=== PATIENT | male | born 1975 | race Hispanic/Latino ===

== ENCOUNTER 2021-04-28 17:36 | Inpatient (IN) | payer SELFPAY ==
[2021-04-28] MEDS ORDERED: ONDANSETRON 4 MG/2 ML INJ IV ONE (18:09)
[2021-04-28] MEDS ORDERED: SODIUM CHLORIDE 0.9% 1000 ML 1,000 ML IV ONE (18:09)
--- NOTE | 2021-04-28 18:27 | Emergency Department Report ---
ED General Adult HPI - General Chief complaint: Chest Pain Stated complaint: COVID POSITIVE/VOMITING/DIABETIC Time Seen by Provider: 04/28/21 18:04 Source: patient Mode of arrival: Ambulatory Limitations: No Limitations - History of Present Illness Initial comments: Patient is a 46-year-old male presents emergency room complaints of COVID-19 symptoms that began a week ago. He states he tested positive for COVID-19 yesterday. He has associated cough, shortness of breath, fever, chills, body aches, nausea, vomiting, diarrhea. He states he is having difficulty tolerating p.o. intake secondary to the vomiting. He states that occasionally has chest discomfort with coughing but has no chest pain currently. He denies any abdominal pain, leg swelling, hemoptysis, pleuritic pain. Past medical history of diabetes. No allergies to medications. He is a non-smoker. - Related Data Allergies Allergy/AdvReac Type Severity Reaction Status Date / Time No Known Allergies Allergy Unverified 04/28/21 17:41 ED Review of Systems ROS: Stated complaint: COVID POSITIVE/VOMITING/DIABETIC Other details as noted in HPI Comment: All other systems reviewed and negative ED Past Medical Hx - Past Medical History Hx Diabetes: Yes - Surgical History Past Surgical History?: No ED Physical Exam - General Limitations: No Limitations General appearance: alert, in no apparent distress - Head Head exam: Present: atraumatic, normocephalic - Eye Eye exam: Present: normal appearance - ENT ENT exam: Present: mucous membranes moist - Respiratory Respiratory exam: Present: normal lung sounds bilaterally. Absent: respiratory distress, wheezes, rales, rhonchi, stridor, chest wall tenderness, accessory muscle use, decreased breath sounds, prolonged expiratory - Cardiovascular Cardiovascular Exam: Present: regular rate, normal rhythm, normal heart sounds. Absent: systolic murmur, diastolic murmur, rubs, gallop - Neurological Exam Neurological exam: Present: alert, oriented X3 - Psychiatric Psychiatric exam: Present: normal affect, normal mood - Skin Skin exam: Present: warm, dry, intact ED Course Vital Signs 04/28/21 04/28/21 17:43 20:12 Temperature 99.1 F Pulse Rate 94 H Respiratory 20 Rate Blood Pressure 136/77 O2 Sat by Pulse 94 90 Oximetry - Consultations Consultation #1: 04/28/21 21:[address] Biggs, hospitalist will accept and resume care of patient, will admit to hospitalist service ED Medical Decision Making - Lab Data Result diagrams: 04/28/21 18:22 04/28/21 18:22 Lab Results 04/28/21 04/28/21 04/28/21 Range/Units 17:48 18:22 18:22 WBC 5.1 (4.5-11.0) K/mm3 RBC 5.50 H (3.65-5.03) M/mm3 Hgb 15.6 H (11.8-15.2) gm/dl Hct 46.2 H (35.5-45.6) % MCV 84 (84-94) fl MCH 29 (28-32) pg MCHC 34 (32-34) % RDW 13.6 (13.2-15.2) % Plt Count 153 (140-440) K/mm3 Lymph % (Auto) 26.8 (13.4-35.0) % [place] % (Auto) 5.3 (0.0-7.3) % Eos % (Auto) 0.0 (0.0-4.3) % Baso % (Auto) 0.3 (0.0-1.8) % Lymph # (Auto) 1.4 (1.2-5.4) K/mm3 [place] # (Auto) 0.3 (0.0-0.8) K/mm3 Eos # (Auto) 0.0 (0.0-0.4) K/mm3 Baso # (Auto) 0.0 (0.0-0.1) K/mm3 Seg Neutrophils % 67.6 (40.0-70.0) % Seg Neutrophils # 3.4 (1.8-7.7) K/mm3 Sodium 131 L (137-145) mmol/L Potassium 4.2 (3.6-5.0) mmol/L Chloride 94.1 L (98-107) mmol/L Carbon Dioxide 23 (22-30) mmol/L Anion Gap 18 mmol/L BUN 11 (9-20) mg/dL Creatinine 0.7 L (0.8-1.3) mg/dL Estimated GFR > 60 ml/min BUN/Creatinine Ratio 16 % Glucose 187 H (75-100) mg/dL POC Glucose 192 H (70-105) mg/dL Calcium 8.5 (8.4-10.2) mg/dL Total Bilirubin 0.40 (0.1-1.2) mg/dL AST 28 (5-40) units/L ALT 34 (7-56) units/L Alkaline Phosphatase 68 (35-129) units/L Total Protein 7.2 (6.3-8.2) g/dL Albumin 3.9 (3.9-5) g/dL Albumin/Globulin Ratio 1.2 % Lipase 17 (13-60) units/L Vital Signs 04/28/21 04/28/21 17:43 20:12 Temperature 99.1 F Pulse Rate 94 H Respiratory 20 Rate Blood Pressure 136/77 O2 Sat by Pulse 94 90 Oximetry - Radiology Data Radiology results: report reviewed Ordering Physician: SHAQ CASTRO Date of Service: 04/28/21 Procedure(s): XR chest 1V ap Accession Number(s): [id number] cc: SHAQ CASTRO Fluoro Time In Minutes: CHEST 1 VIEW 04/28/2021 6:23 PM INDICATION / CLINICAL INFORMATION: cough, SOB, COVID +. COMPARISON: None available. FINDINGS: SUPPORT DEVICES: None. HEART / MEDIASTINUM: No significant abnormality. LUNGS / PLEURA: Patchy bilateral pulmonary opacities which can be seen in atypical/viral pneumonia. No pneumothorax. ADDITIONAL FINDINGS: No significant additional findings. IMPRESSION: 1. Patchy bilateral pneumonia, possibly Covid pneumonia. Signer Name: Matt Ernst MD Signed: 04/28/2021 7:31 PM Workstation Name: [id number] Transcribed By: DT Dictated By: Robert Ernst MD Electronically Authenticated By: Robert Ernst MD Signed Date/Time: 04/28/211930 DD/ 29 TD/TT: - Medical Decision Making Patient is a 46-year-old male presents emergency room complaints of COVID-19 symptoms that began a week ago. He states he tested positive for COVID-19 yesterday. He has associated cough, shortness of breath, fever, chills, body aches, nausea, vomiting, diarrhea. He states he is having difficulty tolerating p.o. intake secondary to the vomiting. He states that occasionally has chest discomfort with coughing but has no chest pain currently. He denies any abdominal pain, leg swelling, hemoptysis, pleuritic pain. Past medical history of diabetes. No allergies to medications. He is a non-smoker. Initial vitals with mild hypoxia, on ambulation patient's oxygen saturation drops to 90% on room air, patient placed on 2 L nasal cannula. labs with mild dehydration, otherwise stable. CXR: 1. Patchy bilateral pneumonia, possibly Covid pneumonia. Patient given ceftriaxone, azithromycin, dexamethasone. Given COVID-19 with hypoxia pt will be admitted to hospitalist service. Spoke with Dr. Biggs, hospitalist will accept and resume care of patient, will admit to hospitalist service. Spoke with Dr. Garcia, ER attending is agreeable with plan. Discussed all results with patient and answered questions and patient is agreeable with admission. Critical care attestation.: If time is entered above; I have spent that time in minutes in the direct care of this critically ill patient, excluding procedure time. ED Disposition Clinical Impression: COVID-19, Bilateral pulmonary infiltrates on chest x-ray, Hypoxia Disposition: OP ADMIT IP TO THIS HOSP Is pt being admited?: Yes Does the pt Need Aspirin: No Condition: Serious Time of Disposition: 21:16 Print Language: OCCITAN
[2021-04-28 18:38] LABS: Basophils % (Auto) 0.3 % (0.0-1.8); Hematocrit 46.2 % (35.5-45.6); Hemoglobin 15.6 gm/dl (11.8-15.2); Lymphocytes # (Auto) 1.4 K/mm3 (1.2-5.4); Lymphocytes % (Auto) 26.8 % (13.4-35.0); Mean Corpuscular HGB Conc 34 % (32-34); Mean Corpuscular Volume 84 fl (84-94); Monocytes # (Auto) 0.3 K/mm3 (0.0-0.8); Monocytes % (Auto) 5.3 % (0.0-7.3); Platelet Count 153 K/mm3 (140-440); Red Cell Distribution Width 13.6 % (13.2-15.2)
[2021-04-28 19:02] LABS: Alanine Aminotransferase 34 units/L (7-56); Albumin 3.9 g/dL (3.9-5); Blood Urea Nitrogen 11 mg/dL (9-20); Calcium 8.5 mg/dL (8.4-10.2); Hemolysis Index 13
[2021-04-28 19:07] LABS: BUN/Creatinine Ratio 16
--- NOTE | 2021-04-28 19:35 | XRay Report ---
CHEST 1 VIEW 04/28/2021 6:23 PM INDICATION / CLINICAL INFORMATION: cough, SOB, COVID +. COMPARISON: None available. FINDINGS: SUPPORT DEVICES: None. HEART / MEDIASTINUM: No significant abnormality. LUNGS / PLEURA: Patchy bilateral pulmonary opacities which can be seen in atypical/viral pneumonia. N o pneumothorax. ADDITIONAL FINDINGS: No significant additional findings. IMPRESSION: 1. Patchy bilateral pneumonia, possibly Covid pneumonia. Signer Name: Matt Ernst MD Signed: 04/28/2021 7:31 PM Workstation Name: [id number]
[2021-04-28] MEDS ORDERED: cefTRIAXone/NS 1 GM/50 ML 1 GM/50 ML BAG IV ONE (20:21)
[2021-04-28] MEDS ORDERED: AZITHROMYCIN/NS 500 MG/250 ML 500 MG/250 ML BAG IV ONE (20:21)
[2021-04-28] MEDS ORDERED: dexAMETHasone 4 MG/ML VIAL IV ONE (20:21)
[2021-04-28] MEDS ORDERED: oxyCODONE /ACETAMINOPHEN 5-325MG TAB PO PRN (22:29)
[2021-04-28] MEDS ORDERED: HYDROmorphone 1 MG/1 ML INJ IV PRN (22:29)
[2021-04-28] MEDS ORDERED: ACETAMINOPHEN 325 MG TAB PO PRN (22:29)
[2021-04-28] MEDS ORDERED: DEXTROSE 50% IN WATER (25GM) 50 ML SYRINGE IV PRN (22:29)
[2021-04-28] MEDS ORDERED: ALBUTEROL 2.5 MG/3 ML NEBU IH PRN (22:29)
[2021-04-28] MEDS ORDERED: ONDANSETRON 4 MG/2 ML INJ IV PRN (22:29)
[2021-04-28] MEDS ORDERED: hydrALAZINE 20 MG/1 ML INJ IV PRN (22:32)
--- NOTE | 2021-04-28 22:37 | History and Physical Report ---
History of Present Illness Date of examination: 04/28/21 Date of admission: 04/28/21 21:16 Chief complaint: Chest pain Vomiting Covid positive History of present illness: 46 years old male with history of diabetes was brought to the emergency room because of COVID-19 symptoms that began a week ago. He states he tested positive for COVID-19 yesterday. He has associated cough, shortness of breath, fever, chills, body aches, nausea, vomiting, diarrhea. He states he is having difficulty tolerating p.o. intake secondary to the vomiting. He states that occasionally has chest discomfort with coughing but has no chest pain currently. He denies any abdominal pain, leg swelling, hemoptysis, pleuritic pain. He is a non-smoker. In the emergency room patient chest x-ray shows patchy bilateral pneumonia possibly Covid pneumonia Past History Past Medical History: diabetes Medications and Allergies Allergies Allergy/AdvReac Type Severity Reaction Status Date / Time No Known Allergies Allergy Unverified 04/28/21 17:41 Active Meds: Active Medications Acetaminophen (Acetaminophen 325 Mg Tab) 650 mg PO Q4H PRN PRN Reason: Pain MILD(1-3)/Fever >100.5/MARIN Albuterol (Albuterol 2.5 Mg/3 Ml Nebu) 2.5 mg IH Q4HRT PRN PRN Reason: Shortness Of Breath Albuterol/Ipratropium (Ipratropium/Albuterol Sulfate 3 Ml Ampul.Neb) 1 ampul IH Q6HRT [facility] Dextrose (Dextrose 50% In Water (25gm) 50 Ml Syringe) 50 ml IV Q30MIN PRN; Protocol PRN Reason: Hypoglycemia Famotidine (Famotidine 20 Mg Tab) 20 mg PO BID [facility] Hydromorphone HCl (Hydromorphone 1 Mg/1 Ml Inj) 0.5 mg IV Q3H PRN PRN Reason: Pain , Severe (7-10) Ceftriaxone Sodium (Rocephin/Ns 2 Gm/100 Ml) 2 gm in 100 mls @ 200 mls/hr IV Q24H RENETTA; Protocol Ondansetron HCl (Ondansetron 4 Mg/2 Ml Inj) 4 mg IV Q8H PRN PRN Reason: Nausea And Vomiting Oxycodone/Acetaminophen (Oxycodone /Acetaminophen 5-325mg Tab) 1 tab PO Q6H PRN PRN Reason: Pain, Moderate (4-6) Sodium Chloride (Sodium Chloride 0.9% 10 Ml Flush Syringe) 10 ml IV BID [facility] Sodium Chloride (Sodium Chloride 0.9% 10 Ml Flush Syringe) 10 ml IV PRN PRN PRN Reason: LINE FLUSH Review of Systems Constitutional: fever, chills, other (Body ache) Gastrointestinal: nausea, vomiting, diarrhea Exam - Constitutional Vitals: Temp Pulse Resp BP Pulse Ox 99.1 F 94 H 20 136/77 90 04/28/21 17:43 04/28/21 17:43 04/28/21 17:43 04/28/21 17:43 04/28/21 20:12 General appearance: Present: no acute distress, well-nourished - EENT Eyes: Present: PERRL ENT: hearing intact, clear oral mucosa - Neck Neck: Present: supple, normal ROM - Respiratory Respiratory effort: normal Respiratory: bilateral: CTA - Cardiovascular Heart Sounds: Present: S1 & S2. Absent: rub, click - Extremities Extremities: pulses symmetrical, No edema Peripheral Pulses: within normal limits - Abdominal General gastrointestinal: Present: soft, non-tender, non-distended, normal bowel sounds Male genitourinary: Present: normal - Integumentary Integumentary: Present: clear, warm, dry - Musculoskeletal Musculoskeletal: gait normal, strength equal bilaterally - Psychiatric Psychiatric: appropriate mood/affect, intact judgment & insight - Neurologic Neurologic: CNII-XII intact, moves all extremities Results - Labs CBC & Chem 7: 04/28/21 18:22 04/28/21 18:22 Labs: Laboratory Last Values WBC 5.1 K/mm3 (4.5-11.0) 04/28/21 18:22 RBC 5.50 M/mm3 (3.65-5.03) H 04/28/21 18:22 Hgb 15.6 gm/dl (11.8-15.2) H 04/28/21 18:22 Hct 46.2 % (35.5-45.6) H 04/28/21 18:22 MCV 84 fl (84-94) 04/28/21 18:22 MCH 29 pg (28-32) 04/28/21 18:22 MCHC 34 % (32-34) 04/28/21 18:22 RDW 13.6 % (13.2-15.2) 04/28/21 18:22 Plt Count 153 K/mm3 (140-440) 04/28/21 18:22 Lymph % (Auto) 26.8 % (13.4-35.0) 04/28/21 18:22 [place] % (Auto) 5.3 % (0.0-7.3) 04/28/21 18:22 Eos % (Auto) 0.0 % (0.0-4.3) 04/28/21 18:22 Baso % (Auto) 0.3 % (0.0-1.8) 04/28/21 18:22 Lymph # (Auto) 1.4 K/mm3 (1.2-5.4) 04/28/21 18:22 [place] # (Auto) 0.3 K/mm3 (0.0-0.8) 04/28/21 18:22 Eos # (Auto) 0.0 K/mm3 (0.0-0.4) 04/28/21 18:22 Baso # (Auto) 0.0 K/mm3 (0.0-0.1) 04/28/21 18:22 Seg Neutrophils % 67.6 % (40.0-70.0) 04/28/21 18:22 Seg Neutrophils # 3.4 K/mm3 (1.8-7.7) 04/28/21 18:22 Sodium 131 mmol/L (137-145) L 04/28/21 18:22 Potassium 4.2 mmol/L (3.6-5.0) 04/28/21 18:22 Chloride 94.1 mmol/L (98-107) L 04/28/21 18:22 Carbon Dioxide 23 mmol/L (22-30) 04/28/21 18:22 Anion Gap 18 mmol/L 04/28/21 18:22 BUN 11 mg/dL (9-20) 04/28/21 18:22 Creatinine 0.7 mg/dL (0.8-1.3) L 04/28/21 18:22 Estimated GFR > 60 ml/min 04/28/21 18:22 BUN/Creatinine Ratio 16 % 04/28/21 18:22 Glucose 187 mg/dL (75-100) H 04/28/21 18:22 POC Glucose 192 mg/dL (70-105) H 04/28/21 17:48 Calcium 8.5 mg/dL (8.4-10.2) 04/28/21 18:22 Total Bilirubin 0.40 mg/dL (0.1-1.2) 04/28/21 18:22 AST 28 units/L (5-40) 04/28/21 18:22 ALT 34 units/L (7-56) 04/28/21 18:22 Alkaline Phosphatase 68 units/L (35-129) 04/28/21 18:22 Total Protein 7.2 g/dL (6.3-8.2) 04/28/21 18:22 Albumin 3.9 g/dL (3.9-5) 04/28/21 18:22 Albumin/Globulin Ratio 1.2 % 04/28/21 18:22 Lipase 17 units/L (13-60) 04/28/21 18:22 - Imaging and Cardiology Chest x-ray: report reviewed Assessment and Plan VTE prophylaxis?: Chemical Plan of care discussed with patient/family: Yes - Patient Problems (1) COVID-19 Current Visit: Yes Status: Acute Plan to address problem: Admit to the [facility]. Put the patient on isolation. Oxygen via nasal cannula 3 L/min. DuoNeb by nebulizer every 4 hours. Rocephin 2 g IV daily. Zithromax 500 mg IV daily. Dexamethasone 6 mg IV daily. We will consult infectious disease for further evaluation and treatment. Follow the Covid inflammatory marker (2) Bilateral pulmonary infiltrates on chest x-ray Current Visit: Yes Status: Acute Plan to address problem: Oxygen via nasal cannula 3 L/min. DuoNeb by nebulizer every 4 hours. Rocephin 2 g IV daily. Zithromax 500 mg IV daily. Dexamethasone 6 mg IV daily. We will consult infectious disease for further evaluation and treatment. Follow the Covid inflammatory marker (3) Diabetes Current Visit: Yes Status: Acute Plan to address problem: We put the patient on 1800 kcal ADA diet. Humalog sliding scale Accu-Chek before meals and at bedtime moderate dose coverage. We also consult for diabetic education (4) Hypoxia Current Visit: Yes Status: Acute Plan to address problem: Oxygen via nasal cannula 3 L/min. DuoNeb by nebulizer every 4 hours. Rocephin 2 g IV daily. Zithromax 500 mg IV daily. Dexamethasone 6 mg IV daily. (5) DVT prophylaxis Current Visit: Yes Status: Acute Plan to address problem: Heparin 5000 units subcu every 8 hours for DVT prophylaxis. Pepcid 20 mg p.o. twice daily for GI prophylaxis. Patient is a full code
[2021-04-29] MEDS: IPRATROPIUM/ALBUTEROL SULFATE 3 ML AMPUL.NEB IH SCH ×4 (04:43→20:25)
--- NOTE | 2021-04-29 08:26 | Progress Note ---
Assessment and Plan Assessment and plan: (1) COVID-19 Current Visit: Yes Status: Acute Plan to address problem: Admit to the [facility]. Put the patient on isolation. Oxygen via nasal cannula 3 L/min. DuoNeb by nebulizer every 4 hours. Rocephin 2 g IV daily. Zithromax 500 mg IV daily. Dexamethasone 6 mg IV daily. We will consult infectious disea se for further evaluation and treatment. Follow the Covid inflammatory marker (2) Bilateral pulmonary infiltrates on chest x-ray Current Visit: Yes Status: Acute Plan to address problem: Oxygen via nasal cannula 3 L/min. DuoNeb by nebulizer every 4 hours. Rocephin 2 g IV daily. Zithromax 500 mg IV daily. Dexamethasone 6 mg IV daily. We will consult infectious disease for further evaluation and treatment. Follow the Covid inflammatory marker (3) Diabetes Current Visit: Yes Status: Acute Plan to address problem: We put the patient on 1800 kcal ADA diet. Humalog sliding scale Accu-Chek before meals and at bedtime moderate dose coverage. We also consult for diabetic education (4) Hypoxia Current Visit: Yes Status: Acute Plan to address problem: Oxygen via nasal cannula 3 L/min. DuoNeb by nebulizer every 4 hours. Rocephin 2 g IV daily. Zithromax 500 mg IV daily. Dexamethasone 6 mg IV daily. (5) DVT prophylaxis Current Visit: Yes Status: Acute Plan to address problem: Heparin 5000 units subcu every 8 hours for DVT prophylaxis. Pepcid 20 mg p.o. twice daily for GI prophylaxis. Patient is a full code 04/29 -I put the patient on remdesivir and continue Decadron -Inflammatory markers ordered -ID consulted -Patient has hyperglycemia and added Lantus 20 units, continue sliding scale insulin -We will monitor History Interval history: Patient was seen and evaluated this morning Patient states shortness of breath is getting better Patient was on 2 L of oxygen Hospitalist Physical - Physical exam Narrative exam: Not in cardiopulmonary distress. The patient is morbidly obese. Vital signs as documented. Head exam is unremarkable. No scleral icterus . Neck is without jugular venous distension, thyromegaly, or carotid bruits. Lungs are clear to auscultation. Cardiac exam reveals regular rate and Rhythm. Abdominal exam reveals normal bowel sounds, nontender, no organomegaly. Extremities are nonedematous and both femoral and pedal pulses are normal. [employer]: Alert and oriented 3. No focal weakness. - Constitutional Vitals: Temp Pulse Resp BP Pulse Ox 98.6 F 79 19 120/63 98 04/28/21 23:42 04/28/21 23:42 04/29/21 05:08 04/28/21 23:42 04/29/21 05:08 General appearance: Present: no acute distress, well-nourished Results - Labs CBC & Chem 7: 04/29/21 08:05 04/28/21 18:22 Labs: Laboratory Last Values WBC 5.1 K/mm3 (4.5-11.0) 04/28/21 18:22 RBC 5.50 M/mm3 (3.65-5.03) H 04/28/21 18:22 Hgb 15.6 gm/dl (11.8-15.2) H 04/28/21 18:22 Hct 46.2 % (35.5-45.6) H 04/28/21 18:22 MCV 84 fl (84-94) 04/28/21 18:22 MCH 29 pg (28-32) 04/28/21 18:22 MCHC 34 % (32-34) 04/28/21 18:22 RDW 13.6 % (13.2-15.2) 04/28/21 18:22 Plt Count 153 K/mm3 (140-440) 04/28/21 18:22 Lymph % (Auto) 26.8 % (13.4-35.0) 04/28/21 18:22 [place] % (Auto) 5.3 % (0.0-7.3) 04/28/21 18:22 Eos % (Auto) 0.0 % (0.0-4.3) 04/28/21 18:22 Baso % (Auto) 0.3 % (0.0-1.8) 04/28/21 18:22 Lymph # (Auto) 1.4 K/mm3 (1.2-5.4) 04/28/21 18:22 [place] # (Auto) 0.3 K/mm3 (0.0-0.8) 04/28/21 18:22 Eos # (Auto) 0.0 K/mm3 (0.0-0.4) 04/28/21 18:22 Baso # (Auto) 0.0 K/mm3 (0.0-0.1) 04/28/21 18:22 Seg Neutrophils % 67.6 % (40.0-70.0) 04/28/21 18:22 Seg Neutrophils # 3.4 K/mm3 (1.8-7.7) 04/28/21 18:22 Sodium 131 mmol/L (137-145) L 04/28/21 18:22 Potassium 4.2 mmol/L (3.6-5.0) 04/28/21 18:22 Chloride 94.1 mmol/L (98-107) L 04/28/21 18:22 Carbon Dioxide 23 mmol/L (22-30) 04/28/21 18:22 Anion Gap 18 mmol/L 04/28/21 18:22 BUN 11 mg/dL (9-20) 04/28/21 18:22 Creatinine 0.7 mg/dL (0.8-1.3) L 04/28/21 18:22 Estimated GFR > 60 ml/min 04/28/21 18:22 BUN/Creatinine Ratio 16 % 04/28/21 18:22 Glucose 187 mg/dL (75-100) H 04/28/21 18:22 POC Glucose 273 mg/dL (70-105) H 04/29/21 07:58 Calcium 8.5 mg/dL (8.4-10.2) 04/28/21 18:22 Total Bilirubin 0.40 mg/dL (0.1-1.2) 04/28/21 18:22 AST 28 units/L (5-40) 04/28/21 18:22 ALT 34 units/L (7-56) 04/28/21 18:22 Alkaline Phosphatase 68 units/L (35-129) 04/28/21 18:22 Total Protein 7.2 g/dL (6.3-8.2) 04/28/21 18:22 Albumin 3.9 g/dL (3.9-5) 04/28/21 18:22 Albumin/Globulin Ratio 1.2 % 04/28/21 18:22 Lipase 17 units/L (13-60) 04/28/21 18:22 Petersen/IV: Voiding Method Toilet Active Medications - Current Medications Current Medications: Generic Name Dose Route Start Last Admin Trade Name Freq PRN Reason Stop Dose Admin Acetaminophen 650 mg 04/28/21 22:29 Acetaminophen 325 Mg Tab PO Q4H PRN Pain MILD(1-3)/Fever >100.5/MARIN Albuterol 2.5 mg 04/28/21 22:29 Albuterol 2.5 Mg/3 Ml Nebu IH Q4HRT PRN Shortness Of Breath Albuterol/Ipratropium 1 ampul 04/29/21 02:00 04/29/21 04:43 Ipratropium/Albuterol Sulfate 3 Ml Ampul.Neb IH Not Given Q6HRT [facility] Dexamethasone 6 mg 04/29/21 10:00 Dexamethasone 4 Mg/Ml Vial IV 05/07/21 10:01 Q24HR [facility] Dextrose 0 ml 04/28/21 22:29 Dextrose 50% In Water (25gm) 50 Ml Syringe IV Q30MIN PRN Hypoglycemia Protocol Famotidine 20 mg 04/29/21 10:00 Famotidine 20 Mg Tab PO BID [facility] Heparin Sodium (Porcine) 5,000 unit 04/29/21 06:00 Heparin 5,000 Unit/1 Ml Vial SUB-Q Q8HR [facility] Hydralazine HCl 10 mg 04/28/21 22:32 Hydralazine 20 Mg/1 Ml Inj IV Q6H PRN Blood Pressure Hydromorphone HCl 0.5 mg 04/28/21 22:29 Hydromorphone 1 Mg/1 Ml Inj IV Q3H PRN Pain , Severe (7-10) Ceftriaxone Sodium 2 gm in 100 mls @ 200 mls/hr 04/29/21 10:00 Rocephin/Ns 2 Gm/100 Ml IV Q24HR [facility] Protocol Azithromycin 500 mg in 250 mls @ 250 mls/hr 04/29/21 10:00 Zithromax/Ns IV Q24HR [facility] Protocol Insulin Glargine 20 units 04/30/21 08:23 Insulin Glargine 100 Units/Ml SUB-Q QAMDIAB [facility] Insulin Human Lispro 0 unit 04/29/21 07:30 Insulin Lispro 100 Unit/Ml SUB-Q ACHS [facility] Protocol Ondansetron HCl 4 mg 04/28/21 22:29 Ondansetron 4 Mg/2 Ml Inj IV Q8H PRN Nausea And Vomiting Oxycodone/Acetaminophen 1 tab 04/28/21 22:29 Oxycodone /Acetaminophen 5-325mg Tab PO Q6H PRN Pain, Moderate (4-6) Sodium Chloride 10 ml 04/29/21 10:00 Sodium Chloride 0.9% 10 Ml Flush Syringe IV BID R[facility]ETTA Sodium Chloride 10 ml 04/28/21 22:29 Sodium Chloride 0.9% 10 Ml Flush Syringe IV PRN PRN LINE FLUSH
[2021-04-29] MEDS: INSULIN LISPRO 100 UNIT/ML SUB-Q SCH ×4 (09:05→21:23)
[2021-04-29 09:25] LABS: Basophils % (Auto) 0.2 % (0.0-1.8); Hematocrit 46.4 % (35.5-45.6); Hemoglobin 15.9 gm/dl (11.8-15.2); Lymphocytes % (Auto) 29.1 % (13.4-35.0); Mean Corpuscular HGB Conc 34 % (32-34); Mean Corpuscular Volume 85 fl (84-94); Monocytes # (Auto) 0.3 K/mm3 (0.0-0.8); Monocytes % (Auto) 7.3 % (0.0-7.3); Platelet Count 157 K/mm3 (140-440); Red Blood Count 5.45 M/mm3 (3.65-5.03); Red Cell Distribution Width 13.3 % (13.2-15.2)
[2021-04-29] MEDS ORDERED: cefTRIAXone/NS 2 GM/100 ML 2 GM/100 ML BAG IV SCH (10:00)
[2021-04-29] MEDS ORDERED: AZITHROMYCIN/NS 500 MG/250 ML 500 MG/250 ML BAG IV SCH (10:00)
[2021-04-29] MEDS: dexAMETHasone 4 MG/ML VIAL IV SCH (10:02)
[2021-04-29] MEDS: FAMOTIDINE 20 MG TAB PO SCH ×2 (10:13→21:01)
[2021-04-29] MEDS: HEPARIN 5,000 UNIT/1 ML VIAL SUB-Q SCH ×3 (10:13→21:01)
[2021-04-29] MEDS: guaiFENesin/CODEINE 100-10MG ORAL LIQD 5 ML PO PRN ×2 (12:57→21:00)
[2021-04-29] MEDS ORDERED: REMDESIVIR 200 MG in SODIUM CHLORIDE 0.9% 250ML 250 ML IV ONE (13:00)
[2021-04-29] MEDS ORDERED: SODIUM CHLORIDE 0.9% 50 ML IVPB IV SCH (13:00)
--- NOTE | 2021-04-29 13:15 | Consultation ---
History of Present Illness - Reason for Consult Consult date: 04/29/21 COVID-19 Requesting physician: CAMERON ANDERSON - History of Present Illness The patient is a 46-year-old male with diabetes mellitus admitted to the hospital with COVID-19 and shortness of breath with evidence of hypoxia. Patient is unvaccinated. No fever. Currently on oxygen by nasal cannula at 2 L/min. Feeling better today. Review of Systems: per HPI Past History Past Medical History: diabetes Medications and Allergies Allergies Allergy/AdvReac Type Severity Reaction Status Date / Time No Known Allergies Allergy Unverified 04/28/21 17:41 Active Meds: Active Medications Acetaminophen (Acetaminophen 325 Mg Tab) 650 mg PO Q4H PRN PRN Reason: Pain MILD(1-3)/Fever >100.5/MARIN Albuterol (Albuterol 2.5 Mg/3 Ml Nebu) 2.5 mg IH Q4HRT PRN PRN Reason: Shortness Of Breath Albuterol/Ipratropium (Ipratropium/Albuterol Sulfate 3 Ml Ampul.Neb) 1 ampul IH Q6HRT [facility] Last Admin: 04/29/21 04:43 Dose: Not Given Documented by: Dexamethasone (Dexamethasone 4 Mg/Ml Vial) 6 mg IV Q24HR [facility] Stop: 05/07/21 10:01 Last Admin: 04/29/21 10:02 Dose: 6 mg Documented by: Dextrose (Dextrose 50% In Water (25gm) 50 Ml Syringe) 0 ml IV Q30MIN PRN; Protocol PRN Reason: Hypoglycemia Famotidine (Famotidine 20 Mg Tab) 20 mg PO BID [facility] Last Admin: 04/29/21 10:13 Dose: 20 mg Documented by: Heparin Sodium (Porcine) (Heparin 5,000 Unit/1 Ml Vial) 5,000 unit SUB-Q Q8HR [facility] Last Admin: 04/29/21 13:05 Dose: 5,000 unit Documented by: Hydralazine HCl (Hydralazine 20 Mg/1 Ml Inj) 10 mg IV Q6H PRN PRN Reason: Blood Pressure Hydromorphone HCl (Hydromorphone 1 Mg/1 Ml Inj) 0.5 mg IV Q3H PRN PRN Reason: Pain , Severe (7-10) REMDESIVIR 200 mg/ Sodium (Chloride) 250 mls @ 500 mls/hr IV ONCE ONE Stop: 04/29/21 13:29 Last Admin: 04/29/21 12:57 Dose: 500 mls/hr Documented by: REMDESIVIR 100 mg/ Sodium (Chloride) 250 mls @ 500 mls/hr IV Q24HR@2100 [facility] Stop: 05/03/21 21:29 Insulin Glargine (Insulin Glargine 100 Units/Ml) 20 units SUB-Q QAMDIAB [facility] Insulin Human Lispro (Insulin Lispro 100 Unit/Ml) 0 unit SUB-Q ACHS [facility]; Protocol Last Admin: 04/29/21 12:58 Dose: 6 unit Documented by: Ondansetron HCl (Ondansetron 4 Mg/2 Ml Inj) 4 mg IV Q8H PRN PRN Reason: Nausea And Vomiting Oxycodone/Acetaminophen (Oxycodone /Acetaminophen 5-325mg Tab) 1 tab PO Q6H PRN PRN Reason: Pain, Moderate (4-6) Pseudoephedrine/Acetam/Chlorphenir (Guaifenesin/Codeine 100-10mg Oral Liqd 5 Ml) 10 ml PO Q4H PRN PRN Reason: Cough Last Admin: 04/29/21 12:57 Dose: 10 ml Documented by: Sodium Chloride (Sodium Chloride 0.9% 10 Ml Flush Syringe) 10 ml IV BID [facility] Last Admin: 04/29/21 10:14 Dose: 10 ml Documented by: Sodium Chloride (Sodium Chloride 0.9% 10 Ml Flush Syringe) 10 ml IV PRN PRN PRN Reason: LINE FLUSH Sodium Chloride (Sodium Chloride 0.9% 50 Ml Ivpb) 50 ml IV Q24HR@2100 [facility] Stop: 05/03/21 21:01 Last Admin: 04/29/21 12:58 Dose: 50 ml Documented by: Physical Examination - Physical Exam Narrative exam: Physical Exam: Constitutional: Alert, cooperative. No acute distress Head, Ears, Nose: Normocephalic, atraumatic. External ears, nose normal Eyes: Conjunctivae/corneas clear. No icterus. No ptosis. Neck: Supple, no meningeal signs Oral: Mask Cardiovascular: S1, S2 + Respiratory: Good air entry, clear to auscultation bilaterally GI: Soft, non-tender; bowel sounds normal. No peritoneal signs Musculoskeletal: No pedal edema, no cyanosis. Skin: No rash or abscess Hem/Lymphatic: No palpable cervical or supraclavicular nodes. No lymphangitis Psych: Mood ok. Affect normal Neurological: Awake, alert, oriented. No gross abnormality - Constitutional Vitals: Vital Signs Temp Pulse Resp BP Pulse Ox 98.0 F 78 16 118/72 96 04/29/21 12:01 04/29/21 12:01 04/29/21 12:01 04/29/21 12:01 04/29/21 12:01 Temperature -Last 24 Hours Temperature 98.0 F Temperature 97.3 F Temperature 98.6 F Temperature 99.1 F Results - Labs CBC & Chem 7: 04/29/21 08:05 04/28/21 18:22 Labs: Abnormal lab results 04/28/21 04/28/21 04/28/21 Range/Units 17:48 18:22 18:22 WBC (4.5-11.0) K/mm3 RBC 5.50 H (3.65-5.03) M/mm3 Hgb 15.6 H (11.8-15.2) gm/dl Hct 46.2 H (35.5-45.6) % Lymph # (Auto) (1.2-5.4) K/mm3 Sodium 131 L (137-145) mmol/L Chloride 94.1 L (98-107) mmol/L Creatinine 0.7 L (0.8-1.3) mg/dL Glucose 187 H (75-100) mg/dL POC Glucose 192 H (70-105) mg/dL Hemoglobin A1c (4-6) % Ferritin (30.0-300.0) ng/mL Lactate Dehydrogenase (91-180) units/L 04/29/21 04/29/21 04/29/21 Range/Units 02:33 07:58 08:05 WBC 3.5 L (4.5-11.0) K/mm3 RBC 5.45 H (3.65-5.03) M/mm3 Hgb 15.9 H (11.8-15.2) gm/dl Hct 46.4 H (35.5-45.6) % Lymph # (Auto) 1.0 L (1.2-5.4) K/mm3 Sodium (137-145) mmol/L Chloride (98-107) mmol/L Creatinine (0.8-1.3) mg/dL Glucose (75-100) mg/dL POC Glucose 282 H 273 H (70-105) mg/dL Hemoglobin A1c (4-6) % Ferritin (30.0-300.0) ng/mL Lactate Dehydrogenase (91-180) units/L 04/29/21 04/29/21 04/29/21 Range/Units 11:31 11:31 11:31 WBC (4.5-11.0) K/mm3 RBC (3.65-5.03) M/mm3 Hgb (11.8-15.2) gm/dl Hct (35.5-45.6) % Lymph # (Auto) (1.2-5.4) K/mm3 Sodium (137-145) mmol/L Chloride (98-107) mmol/L Creatinine (0.8-1.3) mg/dL Glucose (75-100) mg/dL POC Glucose (70-105) mg/dL Hemoglobin A1c 10.5 H (4-6) % Ferritin 1401.0 H (30.0-300.0) ng/mL Lactate Dehydrogenase 278 H (91-180) units/L 04/29/21 Range/Units 12:03 WBC (4.5-11.0) K/mm3 RBC (3.65-5.03) M/mm3 Hgb (11.8-15.2) gm/dl Hct (35.5-45.6) % Lymph # (Auto) (1.2-5.4) K/mm3 Sodium (137-145) mmol/L Chloride (98-107) mmol/L Creatinine (0.8-1.3) mg/dL Glucose (75-100) mg/dL POC Glucose 301 H (70-105) mg/dL Hemoglobin A1c (4-6) % Ferritin (30.0-300.0) ng/mL Lactate Dehydrogenase (91-180) units/L - Imaging and Cardiology Chest x-ray: report reviewed, image reviewed (patchy pna) Assessment and Plan Cultures: SARS CoV2 PCR: Positive as outpatient A/P: 46-year-old male with uncontrolled diabetes admitted with COVID-19: #Bilateral pneumonia: Secondary to COVID-19 #Acute hypoxic respiratory failure: On nasal cannula #Diabetes mellitus, uncontrolled #Leukopenia: Likely secondary to COVID-19 Recs: -IV/PO Dexamethasone 6 mg daily x 10 days -IV remdesivir x 5 days max -prophylactic anticoagulation based on d-dimer per hospital protocol -trend ferritin, LDH, d-dimer, CRP every 2-3 days for risk stratification and to assess disease progression -Ambulatory saturations in a.m., if he clears, can be discharged to complete steroid course, does not need to remain in the hospital to complete remdesivir course -abx stopped Lynn Harrison MD, FACP [facility] ([facility]) O: [phone] F: [phone]
[2021-04-29] MEDS ORDERED: guaiFENesin 100 MG/5 ML ORAL LIQD PO PRN (19:00)
[2021-04-29 20:09] VITALS: BP 114/68
[2021-04-30] MEDS: IPRATROPIUM/ALBUTEROL SULFATE 3 ML AMPUL.NEB IH SCH ×3 (02:00→13:13)
[2021-04-30] MEDS: HEPARIN 5,000 UNIT/1 ML VIAL SUB-Q SCH ×2 (05:59→13:00)
[2021-04-30] MEDS ORDERED: INSULIN GLARGINE 100 UNITS/ML SUB-Q SCH (09:00)
[2021-04-30] MEDS: FAMOTIDINE 20 MG TAB PO SCH (09:12)
[2021-04-30] MEDS: dexAMETHasone 4 MG/ML VIAL IV SCH (09:13)
[2021-04-30] MEDS: INSULIN LISPRO 100 UNIT/ML SUB-Q SCH ×2 (09:15→12:58)
[2021-04-30] MEDS ORDERED: ASCORBIC ACID 500 MG TAB PO SCH (10:00)
[2021-04-30] MEDS ORDERED: ZINC SULFATE 220 MG CAP PO SCH (10:00)
[2021-04-30] MEDS ORDERED: CHOLECALCIFEROL (VIT D3) 1000 UNIT (25 mcg) TAB PO SCH (10:00)
[2021-04-30 10:08] LABS: Alanine Aminotransferase 31 units/L (7-56); Albumin 3.6 g/dL (3.9-5); BUN/Creatinine Ratio 21; Blood Urea Nitrogen 17 mg/dL (9-20); Calcium 8.7 mg/dL (8.4-10.2); Hemolysis Index 4
--- NOTE | 2021-04-30 11:39 | Discharge Summary ---
Providers - Providers Date of Admission: 04/29/21 12:42 Date of discharge: 04/30/21 Attending physician: AUDRA GILBERT MD 04/28/21 22:29 Consult to Dietitian/Nutrition [CONS] Routine Physician Instructions: Reason For Exam: Reason for Consult: Diet education Consult to Physician [CONS] Routine Comment: Consulting Provider: YANETH TELLEZ Physician Instructions: Reason For Exam: Covid Primary care physician: ASSOCIATE RESEARCH SCIENTIST Hospitalization Reason for admission: COVID-19 pneumonia, acute hypoxic respiratory failure Condition: Stable Hospital course: History of present illness: 46 years old male with history of diabetes was brought to the emergency room because of COVID-19 symptoms that began a week ago. He states he tested positive for COVID-19 yesterday. He has associated cough, shortness of breath, fever, chills, body aches, nausea, vomiting, diarrhea. He states he is having difficulty tolerating p.o. intake secondary to the vomiting. He states that occasionally has chest discomfort with coughing but has no chest pain currently. He denies any abdominal pain, leg swelling, hemoptysis, pleuritic pain. He is a non-smoker. In the emergency room patient chest x-ray shows patchy bilateral pneumonia possibly Covid pneumonia Hospital course Patient was admitted to the floor and was treated with IV remdesivir, Decadron, was on 3 L of oxygen. Patient showed improvement this morning. Patient saturation was 93% after 6-minute walk. Patient said he is feeling better. Patient has cough and was given a cough syrup. Patient discharged with dexamethasone to finish total of 10 days. Dimer was normal, chest x-ray showed bilateral opacities. Patient discharged home in stable condition. Patient is diabetic and is on Metformin and advised to have follow-up with his primary care physician for adjustment of his medications. Disposition: - TO HOME OR SELFCARE Final Discharge Diagnosis (Prints w/discharge instructions): Acute hypoxic respiratory failure. Covid pneumonia Time spent for discharge: 35 minutes - Discharge Diagnoses (1) Acute respiratory failure with hypoxia Status: Acute (2) Bilateral pulmonary infiltrates on chest x-ray Status: Acute (3) COVID-19 Status: Acute Core Measure Documentation - Palliative Care Palliative Care/ Comfort Measures: Not Applicable - Core Measures Any of the following diagnoses?: none Exam - Physical Exam Narrative exam: Not in cardiopulmonary distress. The patient is morbidly obese. Vital signs as documented. Head exam is unremarkable. No scleral icterus . Neck is without jugular venous distension, thyromegaly, or carotid bruits. Lungs are clear to auscultation. Cardiac exam reveals regular rate and Rhythm. Abdominal exam reveals normal bowel sounds, nontender, no organomegaly. Extremities are nonedematous and both femoral and pedal pulses are normal. CORRECTIONS IDENTIFICATION TECHNICIAN: Alert and oriented 3. No focal weakness. - Constitutional Vitals: Temp Pulse Resp BP Pulse Ox 98.0 F 75 18 114/68 95 04/29/21 19:50 04/30/21 07:54 04/30/21 07:54 04/29/21 19:50 04/30/21 10:27 Plan Activity: no restrictions Weight Bearing Status: Full Weight Bearing Diet: diabetic Follow up with: PRIMARY CARE, [Primary Care Provider] - 3-5 Days Prescriptions: Dexamethasone [Decadron] 6 mg PO DAILY #8 tablet guaiFENesin/CODEINE [Robitussin AC] 10 ml PO Q4H PRN 7 Days #1 oral.liqd PRN Reason: SEVERE Cough
--- NOTE | 2021-04-30 13:35 | Progress Note ---
Assessment and Plan Cultures: SARS CoV2 PCR: Positive as outpatient A/P: 46-year-old male with uncontrolled diabetes admitted with COVID-19: #Bilateral pneumonia: Secondary to COVID-19 #Acute hypoxic respiratory failure: On nasal cannula #Diabetes mellitus, uncontrolled #Leukopenia: Likely secondary to COVID-19 Recs: -weaned off oxygen, ok to discharge, complete remainder of steroid course -remdesivir discontinued Lynn Harrison MD, FACP [facility] ([facility]) O: [phone] F: [phone] Subjective Date of service: 04/30/21 Interval history: No fever. weaned off oxygen. Going home today. Objective - Exam Narrative Exam: Physical Exam: Constitutional: Alert, cooperative. No acute distress Head, Ears, Nose: Normocephalic, atraumatic. External ears, nose normal Eyes: Conjunctivae/corneas clear. No icterus. No ptosis. Neck: Supple, no meningeal signs Oral: Mask Cardiovascular: S1, S2 + Respiratory: Good air entry, clear to auscultation bilaterally GI: Soft, non-tender; bowel sounds normal. No peritoneal signs Musculoskeletal: No pedal edema, no cyanosis. Skin: No rash or abscess Hem/Lymphatic: No palpable cervical or supraclavicular nodes. No lymphangitis Psych: Mood ok. Affect normal Neurological: Awake, alert, oriented. No gross abnormality - Constitutional Vitals: Vital Signs Temp Pulse Resp BP Pulse Ox 98.0 F 75 18 114/68 96 04/29/21 19:50 04/30/21 07:54 04/30/21 07:54 04/29/21 19:50 04/30/21 12:50 Temperature -Last 24 Hours Temperature 98.0 F Temperature 97.0 F - Labs CBC & Chem 7: 04/29/21 08:05 04/30/21 09:00 Labs: Abnormal lab results 04/29/21 04/29/21 04/29/21 Range/Units 17:11 20:42 Unknown Carbon Dioxide (22-30) mmol/L Glucose (75-100) mg/dL POC Glucose 358 H 385 H (70-105) mg/dL Ferritin (30.0-300.0) ng/mL C-Reactive Protein (0.00-1.30) mg/dL Albumin (3.9-5) g/dL Coronavirus (PCR) Positive A (Negative) 04/30/21 04/30/21 04/30/21 Range/Units 01:08 07:40 09:00 Carbon Dioxide 21 L (22-30) mmol/L Glucose 307 H (75-100) mg/dL POC Glucose 295 H 272 H (70-105) mg/dL Ferritin (30.0-300.0) ng/mL C-Reactive Protein 2.50 H (0.00-1.30) mg/dL Albumin 3.6 L (3.9-5) g/dL Coronavirus (PCR) (Negative) 04/30/21 04/30/21 Range/Units 09:00 12:50 Carbon Dioxide (22-30) mmol/L Glucose (75-100) mg/dL POC Glucose 377 H (70-105) mg/dL Ferritin 1840.0 H (30.0-300.0) ng/mL C-Reactive Protein (0.00-1.30) mg/dL Albumin (3.9-5) g/dL Coronavirus (PCR) (Negative)
--- NOTE | 2021-04-30 17:40 | Electrocardiograph Report ---
[facility] Test Date: 2021-04-28 Test Time: 17:51:06 Pat Name: JESSICA MARCELO Department: Room: A366 1 Gender: M Package Designer: DAWNA : 1975 Requested By: AUDRA GILBERT Order Number: [id number] Reading MD: Jose Salvador Measurements Intervals [place] Rate: 83 P: 0 NM: 157 QRS: -29 QRSD: 82 T: 142 QT: 354 QTc: 417 Interpretive Statements Sinus rhythm Probable left atrial enlargement Low voltage, precordial leads No previous ECG available for comparison Electronically Signed On 04-30-2021 17:40:17 EDT by Jose Salvador
[2021-04-30] MEDS ORDERED: REMDESIVIR 100 MG in SODIUM CHLORIDE 0.9% 250ML 250 ML IV SCH (21:00)
== END 2021-04-30 14:15 | disposition home or self-care (01) | DRG 177 ==
LOC: ED 17:36 → EEVIPCON 21:16 → 3A 21:16 → OBSVTOIN 04-29 12:42
PROVIDERS: ADMIT Hospitalist; ATTEND Internal Medicine
PROC: XW033E5 Introduction of Remdesivir Anti-infective into Peripheral Vein, Percutaneous Approach, New Technology Group 5 (ICD-10-PCS; principal; 2021-04-29)
DX: U07.1 COVID-19 (principal); J12.82 Pneumonia due to coronavirus disease 2019; J96.01 Acute respiratory failure with hypoxia; E11.9 Type 2 diabetes mellitus without complications; D72.818 Other decreased white blood cell count; Z79.899 Other long term (current) drug therapy; Z79.891 Long term (current) use of opiate analgesic; Z79.01 Long term (current) use of anticoagulants
CPT/HCPCS: 36415; 71045; 80053; 82728; 82962; 83036; 83615; 83690; 84145; 85025; 85379; 86140; 93005; 94640; 96361; 96365; 96366; 96375; G0378; J0456; J0696; J1100; J1644; J1815; J2405; J7030; J7050; U0003